=== PATIENT | male | born 1950 | race Caucasian/White ===

== ENCOUNTER 2021-09-16 10:45 | Outpatient (CLI) | payer MEDICARE ==
[2021-09-16] MEDS ORDERED: Magnevist 469MG/ML 20 ML VIAL ONE (12:15)
== END 2021-09-16 10:46 | disposition home or self-care (01) ==
LOC: CSHMRI 10:45
PROVIDERS: ATTEND Family Medicine
DX: R29.898 Other symptoms and signs involving the musculoskeletal system (principal)
CPT/HCPCS: 70553; 82565; A9579